=== PATIENT | female | born 1960 | race Asian ===

== ENCOUNTER 2019-03-20 08:21 | Outpatient (CLI) | payer MEDICAID ==
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
== END 2019-03-20 08:22 | disposition home or self-care (01) ==
LOC: DI 08:21
PROVIDERS: ATTEND Nurse Practitioner Gerontology
DX: M75.52 Bursitis of left shoulder (principal)

== ENCOUNTER 2019-09-10 07:57 | Outpatient (CLI) | payer MEDICAID ==
--- NOTE | 2019-09-10 08:28 | CT Report ---
Reason: TRAUMATIC SUBARACHNOID HEMORRHAGE, MIGRAINE Procedure Date: 09/10/2019 Accession Number: [id number] / [id number] Procedure: CT - HEAD WO CPT Code: Final Report FULL RESULT: EXAM: CT HEAD EXAM DATE: 09/10/2019 08:18 AM. CLINICAL HISTORY: TRAUMATIC SUBARACHNOID HEMORRHAGE, MIGRAINE. COMPARISON: None. TECHNIQUE: Multiaxial CT images were obtained from the foramen magnum to the vertex. Reformats: Sagittal and coronal. IV contrast: None. In accordance with CT protocol optimization, one or more of the following dose reduction techniques were utilized for this exam: automated exposure control, adjustment of mA and/or KV based on patient size, or use of iterative reconstructive technique. FINDINGS: Parenchyma: No intraparenchymal hemorrhage. No evidence of mass or midline shift. Abernathy-white differentiation is distinct. Extraaxial Spaces: Normal for age. No subdural or epidural collections identified. Ventricles: Normal in size and position. Sinuses and Orbits: Imaged paranasal sinuses, orbits, and mastoids show no significant abnormality. Bones: No evidence of fracture or calvarial defect. Other: There is a left frontal deep subcutaneous low dense lump, 0.5 x 3 cm, without fat stranding. IMPRESSION: 1. Negative for fracture or intracranial bleed. 2. A left frontal deep subcutaneous low dense lump, 0.5 x 3 cm, suggesting a lipoma. RADIA
== END 2019-09-10 07:58 | disposition home or self-care (01) ==
LOC: DI 07:57
PROVIDERS: ATTEND Physician Assistant Medical
DX: S06.6X0A Traumatic subarachnoid hemorrhage without loss of consciousness, initial encounter (principal); G43.909 Migraine, unspecified, not intractable, without status migrainosus; R93.89 Abnormal findings on diagnostic imaging of other specified body structures
CPT/HCPCS: 70450

== ENCOUNTER → 2020-06-16 | Outpatient (CLI) | payer MEDICARE, MEDICAID ==
--- NOTE | 2020-06-16 11:12 | XRAY Report ---
PROCEDURE: Cervical Spine 2 View INDICATIONS: LEFT ARM PAIN, RADICULOPATHY TECHNIQUE: 3 view(s) of the cervical spine were acquired. COMPARISON: None. FINDINGS: Bones: No fractures or dislocations to the T1 level. The lateral masses of C1 appear intact on the odontoid view. No suspicious bony lesions. Mild to moderate degenerative disc disease is present at C5-6 and C6-7 without subluxation or trauma. Soft tissues: No prevertebral soft tissue swelling. IMPRESSION: Mild to moderate middle and lower third cervical degenerative disc disease without sublu xation. Reviewed by: Raul Dumas MD on 06/16/2020 11:10 AM PDT Approved by: Raul Dumas MD on 06/16/2020 11:10 AM PDT Station ID: [id number]
== END ==
LOC: DI.WCP 10:31
PROVIDERS: ATTEND Orthopaedic Surgery
DX: M50.322 Other cervical disc degeneration at C5-C6 level (principal)
CPT/HCPCS: 72040

== ENCOUNTER 2020-06-26 04:58 | Outpatient (CLI) | payer MEDICARE, MEDICAID | END 2020-06-26 04:59 | disposition critical access hospital (66) | LOC: EMS 04:58 | PROVIDERS: ATTEND Surgery | DX: R10.9 Unspecified abdominal pain (principal); R11.2 Nausea with vomiting, unspecified | CPT/HCPCS: A0425; A0429 ==

== ENCOUNTER 2020-06-26 05:11 | Inpatient (IN) | payer MEDICARE, MEDICAID ==
--- NOTE | 2020-06-26 05:12 | ED Physician Documentation ---
PD HPI ABD PAIN - Stated complaint Stated Complaint: N/ V - History obtained from History obtained from: Patient, EMS - History of Present Illness Timing - onset: Enter time (00:30), Today Timing - duration: Hours Timing - details: Abrupt onset, Waxing and waning Pain level now: 8 Quality: Pain Location: Epigastric, Periumbilical Improved by: Other (nothing) Worsened by: Other (no exacerbating factors) Associated symptoms: Nausea, Vomiting. No: Fever, Diarrhea, Constipation, Chest pain Similar symptoms before: Diagnosis (feels similar to episode 2 months ago for which she was seen at ) - Additional information Additional information: BIBA for waxing and waning abdominal pain, predominantly epigastric, with nausea and vomiting since approximately 12:30 AM. She feels this is similar to an episode for which she was T+R from 2 months ago Review of Systems Constitutional: denies: Fever, Chills, Sweats Cardiac: reports: Reviewed and negative GI: reports: Abdominal Pain, Nausea, Vomiting. denies: Abdominal Swelling, Constipation, Diarrhea : denies: Dysuria, Frequency Musculoskeletal: reports: Reviewed and negative Neurologic: denies: Headache PD PAST MEDICAL HISTORY - Past Medical History Past Medical History: Yes GI: GERD, Other (severe gastritis/duodenitis (per records from )) - Past Surgical History Past Surgical History: Yes General: Cholecystectomy - Present Medications Home Medications: Ambulatory Orders Medication Instructions Recorded Confirmed Omeprazole 40 mg PO DAILY 06/26/20 06/26/20 - Allergies Allergies/Adverse Reactions: Allergies Allergy/AdvReac Type Severity Reaction Status Date / Time Penicillins Allergy Unknown Verified 06/26/20 05:21 - Living Situation Living Arrangement: reports: At home PD ED PE NORMAL - Vitals Vital signs reviewed: Yes - General General: Alert and oriented X 3, Well developed/nourished, Other (appears to be in painful distress, guarding abdomen, curled up on stretcher and lying on side moaning) - HEENT HEENT: Moist mucous membranes - Neck Neck: Supple, no meningeal sign - Cardiac Cardiac: RRR, No murmur - Respiratory Respiratory: No respiratory distress, Clear bilaterally - Abdomen Abdomen: Soft, Non distended - Back Back: No CVA TTP - Derm Derm: Normal color, Warm and dry - Extremities Extremities: No edema PD ED PE EXPANDED - Abdomen Abdomen: Tender to palpation (RUQ and epigastric TTP) Results - Vitals Vitals: Vital Signs - 24 hr 06/26/20 06/26/20 06/26/20 05:11 05:46 05:54 Temperature 36.1 C L Heart Rate 65 60 66 Respiratory 18 16 12 Rate Blood Pressure 139/89 H 96/62 107/80 O2 Saturation 100 97 06/26/20 06/26/20 06:28 08:08 Temperature 36.0 C L 37.1 C Heart Rate 66 62 Respiratory 20 19 Rate Blood Pressure 106/60 91/58 L O2 Saturation 97 94 Oxygen O2 Source Room air - Labs Labs: Laboratory Tests 06/26/20 06/26/20 06/26/20 05:30 05:30 08:15 WBC 15.7 H RBC 5.02 Hgb 15.6 Hct 47.3 H MCV 94.2 MCH 31.1 H MCHC 33.0 RDW 13.5 Plt Count 309 MPV 9.5 Neut # (Auto) 11.9 H Lymph # (Auto) 2.4 Tate # (Auto) 0.8 Eos # (Auto) 0.4 Baso # (Auto) 0.1 Absolute Nucleated RBC 0.00 Nucleated RBC % 0.0 Sodium 138 Potassium 4.1 Chloride 104 Carbon Dioxide 22 Anion Gap 12.0 BUN 17 Creatinine 0.8 Estimated GFR (MDRD) 74 L Glucose 115 H Calcium 9.6 Total Bilirubin 0.5 AST 24 ALT 22 Alkaline Phosphatase 84 Total Protein 7.6 Albumin 4.3 Globulin 3.3 Albumin/Globulin Ratio 1.3 Lipase 34 Urine Color YELLOW Urine Clarity CLEAR Urine pH 5.5 Ur Specific [place] <=1.005 Urine Protein NEGATIVE Urine Glucose (UA) NEGATIVE Urine Ketones NEGATIVE Urine Occult Blood NEGATIVE Urine Nitrite NEGATIVE Urine Bilirubin NEGATIVE Urine Urobilinogen 0.2 (NORMAL) Ur Leukocyte Esterase NEGATIVE Ur Microscopic Review NOT INDICATED Urine Culture Comments NOT INDICATED - Rads (name of study) CT A/P Radiology: Prelim report reviewed, See rad report PD MEDICAL DECISION MAKING - ED course Complexity details: reviewed results, re-evaluated patient, considered differential, d/w patient Departure - Departure Disposition: [facility] DC/Xfer Clinical Impression: Small bowel obstruction, Ileitis Condition: Good Discharge Date/Time: 06/26/20 09:36
[2020-06-26] MEDS ORDERED: MORPHINE 2 MG/ML CARPUJECT IVP STA (05:16)
[2020-06-26] MEDS ORDERED: SODIUM CHLORIDE 0.9% 1,000 ML IV STA (05:16)
[2020-06-26] MEDS ORDERED: ONDANSETRON 4 MG/2 ML VIAL IVP STA (05:16)
[2020-06-26 05:42] LABS: BASOPHILS # (AUTO) 0.1 10^3/uL (0.0-0.1); BASOPHILS % (AUTO) 0.6 %; EOSINOPHILS # (AUTO) 0.4 10^3/uL (0.0-0.7); EOSINOPHILS % (AUTO) 2.4 %; HGB - HEMOGLOBIN 15.6 g/dL (12.0-16.0); LYMPHOCYTES # (AUTO) 2.4 10^3/uL (1.5-3.5); LYMPHOCYTES % (AUTO) 15.3 %; MEAN CORPUSCULAR HEMOGLOBIN 31.1 pg (27.0-31.0); MEAN CORPUSCULAR VOLUME 94.2 fL (81.0-99.0); MEAN PLATELET VOLUME 9.5 fL (7.9-10.8); MONOCYTES # (AUTO) 0.8 10^3/uL (0.0-1.0); MONOCYTES % (AUTO) 5.3 %; NEUTROPHILS # (AUTO) 11.9 10^3/uL (1.5-6.6); NEUTROPHILS % (AUTO) 75.8 %; PLT - PLATELET COUNT 309 10^3/uL (130-450); RED BLOOD COUNT 5.02 10^6/uL (4.20-5.40); RED CELL DISTRIBUTION WIDTH 13.5 % (12.0-15.0); WHITE BLOOD COUNT 15.7 x10^3/uL (4.8-10.8)
[2020-06-26 06:00] LABS: ALBUMIN 4.3 g/dL (3.2-5.5); ALBUMIN/GLOBULIN RATIO 1.3 (1.0-2.2); BILIRUBIN,TOTAL 0.5 mg/dL (0.2-1.0); CALCIUM 9.6 mg/dL (8.5-10.3); CREATININE 0.8 mg/dL (0.4-1.0); TOTAL PROTEIN 7.6 g/dL (6.7-8.2)
[2020-06-26] MEDS ORDERED: IOVERSOL 320 100 ML VIAL IVP ONE ×2 (07:02→10:13)
[2020-06-26] MEDS ORDERED: PANTOPRAZOLE 40 MG VIAL IVP STA (07:08)
[2020-06-26 08:35] LABS: BILIRUBIN,URINE NEGATIVE (NEGATIVE); GLUCOSE, URINE (UA) NEGATIVE (NEGATIVE); KETONES,URINE (UA) NEGATIVE (NEGATIVE); LEUKOCYTE ESTERASE, URINE NEGATIVE (NEGATIVE); NITRITE,URINE NEGATIVE (NEGATIVE); OCCULT BLOOD,URINE NEGATIVE (NEGATIVE); PH,URINE 5.5 PH (5.0-7.5); PROTEIN,URINE NEGATIVE (NEGATIVE); UROBILINOGEN,URINE 0.2 (NORMAL) E.U./dL (NORMAL)
[2020-06-26 08:51] LABS: CLARITY,URINE CLEAR (CLEAR)
[2020-06-26] MEDS ORDERED: ONDANSETRON 4 MG/2 ML VIAL IVP PRN (09:33)
--- NOTE | 2020-06-26 09:59 | CT Report ---
PROCEDURE: Abdomen/Pelvis W INDICATIONS: abd. pain CONTRAST: IV CONTRAST: Optiray 320 ml: 100 PO CONTRAST: *NO PO CONTRAST TECHNIQUE: After the administration of contrast, 5 mm thick sections acquired from the diaphragms to the sym physis. 5 mm thick coronal and sagittal reformats were acquired. For radiation dose reduction, the following was used: automated exposure control, adjustment of mA and/or kV according to patient size . COMPARISON: None. FINDINGS: Image quality: Excellent. ABDOMEN: Lung bases: Lung bases are clear. Heart size is normal. Solid organs: Liver and spleen are normal in size and enhancement. Gallbladder has been previously resected Biliary system is non dilated. Pancreas enhances normally. No adrenal nodules. Kidneys d emonstrate normal size and enhancement, without hydronephrosis. Peritoneum and bowel: Colonic bowel loops demonstrate normal wall thickness and caliber. Small bowel loops within the abdomen and pelvis show mild wall thickening and mucosal enhancement in several seg ments, and also fluid prominence, with maximal transverse dimension of the small bowel loops up to 2. 5 cm. At the terminal ileum area there is mild elevated mucosal contrast enhancement at the junction between the large and small bowel. In this area a normal appendix appears present. No free fluid or a ir. Nodes and vessels: No retroperitoneal or mesenteric adenopathy by size criteria. Aorta and inferior vena cava are normal in size. Miscellaneous: No ventral hernias. PELVIS: Genitourinary: Bladder wall thickness is normal. Miscellaneous: No inguinal hernias or adenopathy. Mild fluid distention within the small bowel as d iscussed, no evidence of appendicitis. Segmental areas of small bowel mild mural thickening are prese nt with increased mucosal enhancement. The overall appearance raises concern for an inflammatory proc ess ongoing. Bones: No suspicious bony lesions. No vertebral body compression fractures. IMPRESSION: Mild small bowel fluid prominence, segmental areas of mild elevated small bowel mucosal enhancement above what is generally seen. There is no evidence of abscess formation, appendicitis, or obstruction and overall the appearance does raise concern for an inflammatory etiology such as infec tious enteritis or even Crohn's disease. Reviewed by: Raul Dumas MD on 06/26/2020 9:58 AM PDT Approved by: Raul Dumas MD on 06/26/2020 9:58 AM PDT Station ID: [id number]
--- NOTE | 2020-06-26 13:41 | HISTORY & PHYSICAL EXAMINATION ---
Chief Complaint - Chief Complaint Chief Complaint: Abrupt onset nausea, vomiting, abdominal pain History of Present Illness - Admitted From Admitted From:: Home/ER - History Obtained From Records Reviewed: [facility] records provided History obtained from: Patient Exam Limitations: None - History of Present Illness HPI Comment/Other: 60-year-old white female who has a history of a cholecystectomy that comes to [facility] emergency room by ambulance because of abdominal pain that started at 12:30 in the morning. She has a previous history of this kind of abdominal pain on April 2020. At that time she was admitted to [facility] with 1 day of diffuse colicky upper abdominal pain and nausea without vomiting. CT scan in their emergency room had multiple dilated loops of small bowel in the lower abdomen and emanating from the terminal ileum. The terminal ileum demonstrated increased mural enhancement and surrounding inflammatory changes. There was fecal visitation within the small bowel and there was air-fluid levels. There is a secondary narrowing in the ileum. With that visit her white cell count was 8.9. She was treated with bowel rest, NG tube decompression, Gastrografin, and steroids. Colonoscopy and upper endoscopy were also done. Colonoscopy was normal but she had gastritis. She was discharged May 05. She now returns with abrupt onset of waxing and waning epigastric pain. Also radiates to the periumbilical area. Nothing makes it better. She is nauseated, vomiting. She denies any fever, diarrhea, change in bowel habits, or chest pain. She was afebrile. Heart rate normal. Blood pressure normal. Oxygen normal. This time her white cell count is elevated at 15.7. Electrolytes are normal. With this current episode of abdominal pain the CT of the abdomen shows colonic bowel loops with normal wall thickness and caliber. Small bowel loops within the abdomen and pelvis show mild wall thickening and mucosal enhancement in several segments. Fluid is prominent. At the terminal ileum there is mild elevated mucosal contrast-enhancement at the junction between the large and small bowel. She is now admitted again for recurrent small bowel obstruction. 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 They in the [facility] and she has no insight to how old they were or what they of. She has no sisters, 3 brothers. One brother of a nonspecific illness in the [facility]. 2 children. 1 son is healthy and lives in [place]. The other son of a nonspecific illness when he was very little living in the [facility]. Living arrangement: At home Living Situation: Alone Social History Notes: Current every day smoker.She started smoking approximately 1993. She is currently smoking 1 carton of cigarettes every 2 days. No history of alcohol abuse. She has been once. from her . But he is still the person that we would contact in case of emergency. His name is Jt Silva. I have been attempting to call the phone number she provided at [phone], but that line is no longer in service. She has no other number at this time. She has no history of recreational substance abuse. She states that she is on disability for the last year. But she cannot tell me why she is on disability. - POLST Patient has POLST: No POLST Status: Full Code Meds/Allgy - Allergies Allergies/Adverse Reactions: Allergies Allergy/AdvReac Type Severity Reaction Status Date / Time Penicillins Allergy Unknown Verified 06/26/20 05:21 Review of Systems - Constitutional Constitutional: reports: Fatigue, Poor appetite. denies: Fever, Chills, Malaise, Weakness - Eyes Eyes: denies: Pain, Irritation, Amaurosis, Blurred vision - Ears, Nose & Throat Ears, Nose & Throat: denies: Ear pain, Hearing loss, Vertigo, Nosebleeds, Nasal congestion, Postnasal drainage - Cardiovascular Cariovascular: denies: Irregular heart rate, Palpitations, Chest pain, Edema, Syncope, Exertional dyspnea, Decr. exercise tolerance - Respiratory Respiratory: denies: Cough, Sputum production, Wheezing, Snoring, Orthopnea, SOB at rest, SOB with exertion - Gastrointestinal Gastrointestinal: reports: Abdominal pain, Abdominal distention, Nausea, Vomiting. denies: Black stools, Bloody stools, Bile emesis - Genitourinary Genitourinary: denies: Dysuria, Frequency, Urgency, Hematuria - Musculoskeletal Musculoskeletal: denies: Back pain, Muscle aches, Stiffness - Integumentary Integumentary: denies: Rash, Pruritis, Lesions - Neurological Neurological: reports: Memory problems. denies: General weakness, Focal weakness, Headache, Seizures, Incoordination, Slurred speech - Psychiatric Psychiatric: reports: Depression, Anxiety. denies: Suicidal, Delusions, Hallucinations, Homicidal - Endocrine Endocrine: denies: Polyuria, Polydypsia, Polyphagia - Hematologic/Lymphatic Hematologic/Lymphatic: denies: Anemia Prior Level of Functionality: She is able to take care of herself. She is able to complete all of her activities of daily living. Lives alone. Drives a car. Pays her own bills. Exam - Vital Signs Reviewed Vital Signs: Yes Vital Signs: Vital Signs x48h Temp Pulse Pulse Resp BP BP Pulse Ox 06/26/20 13:00 37.0 C 56 L 18 104/56 L 96 06/26/20 10:20 36.8 C 64 16 113/62 97 06/26/20 08:08 37.1 C 62 19 91/58 L 94 06/26/20 06:28 36.0 C L 66 20 106/60 97 06/26/20 05:54 66 12 107/80 97 06/26/20 05:46 60 16 96/62 - Physical Exam General Appearance: positive: No acute distress, Alert, Other (4 foot 11 female who is 53 kg. She is awake, alert, but very apathetic and emotionally withdrawn. Reluctantly answers question and is slightly paranoid and suspicious of the questions being asked during history and physical.) Eyes Bilateral: positive: PERRL, EOMI ENT: positive: Pharynx nml Neck: positive: No JVD, Trachea midline. negative: Stiff neck Respiratory: positive: Chest non-tender. negative: Wheezes, Rales, Rhonchi Cardiovascular: positive: Regular rate & rhythm. negative: Systolic murmur, Diastolic murmur, Gallop/S4, Friction rub Peripheral Pulses: positive: 1+ Abdomen: positive: Other (Pain is generalized, abdomen is slightly distended. Worse in the epigastric area. Hypoactive bowel sounds. No rebound or guarding. No masses. Last flatus and bowel movement were this morning.) Back: negative: CVA tenderness (R), CVA tenderness (L) Skin: positive: Color nml, No rash, Warm, Dry Extremities: positive: Non-tender, Full ROM, Nml appearance Neurologic/Psychiatric: positive: Oriented x3, CN's nml (2-12), Motor nml. negative: Mood/affect nml Conclusion/Plan - Problem List (1) Small bowel obstruction, partial Conclusion/Plan: Recurrent. Present on admission. Previous work-up indicated a EGD with gastritis but no cause of the small bowel obstruction. She does not have tumor, or adhesions noted in the discharge summary. Nor does she have a hernia. Colonoscopy was negative Other than a tubular adenoma that was small. The pathology of the colon,,, and esophagus was negative for malignancy, or inflammatory bowel disease. The small bowel obstruction resolved with bowel rest, and a Gastrografin upper GI. Plan: Inpatient status No NG at this time since she is not actively vomiting but will place NG if she does IV fluids for hydration Pain and nausea medications General surgery consultation. Dr. Mendoza is in the OR, and message has been left with her. - Lab Results Lab results reviewed: Yes Fish Bones: 06/26/20 05:30 06/26/20 05:30 - Diagnostic Imaging Results Diagnostic Imaging Results: positive: Final report reviewed Core Measures - Anticipated LOS I expect patient to be DC'd or transferred within 96 hours.: Yes - DVT/VTE - Prophylaxis VTE/DVT Device ordered at admit?: Yes
[2020-06-26] MEDS ORDERED: HYDROmorphone 0.5 MG/0.5 ML SYRINGE IVP PRN (13:42)
[2020-06-26] MEDS ORDERED: PROCHLORPERAZINE 10 MG/2 ML VIAL IVP PRN (13:42)
[2020-06-26] MEDS ORDERED: SODIUM CHLORIDE FLUSH 0.9% 10 ML SYRINGE IVP PRN (13:42)
--- NOTE | 2020-06-26 14:15 | PHARMACY PROGRESS NOTE ---
- Best Possible Medication History Admit Date and Time: 06/26/20 0842 Processed by: Pharmacy Medication History completed: Yes Patient Interview: Pt interview ONLY source As the person ultimately responsible for medication therapy, providers are able to order a medication from an existing home medication list in [facility] via the "Reconcile Routine" prior to Confirmation of that medication by production support specialist. Such practice is discouraged except when the physician, in their clinical judgment, deems that a medical need exists for a medication without regard to previous use.
[2020-06-26] MEDS: LACTATED RINGERS 1,000 ML IV SCH (14:38)
[2020-06-26] MEDS: SODIUM CHLORIDE FLUSH 0.9% 10 ML SYRINGE IVP SCH (17:56)
--- NOTE | 2020-06-26 17:57 | CONSULTATION NOTE ---
Referring Provider Name of Referring Provider:: Dr. Rubin Consult Date: 06/26/20 Chief Complaint - Chief Complaint Chief Complaint: Abdominal pain History of Present Illness - Admitted From Admitted From:: ED - History Obtained From Records Reviewed: Other provider's notes and old records History obtained from: Provider and patient as well as records Exam Limitations: Some degree of language barrier. - History of Present Illness HPI Comment/Other: Moon is a 60 year old lady admitted today from the ED with complaint of abdominal pain with nausea, vomiting, and diarrhea. She is unsure if she had fever at home but reports she was sweating and feeling weak and this is what prompted her to call EMS. She reports she had a similar episode in April when she was seen at [facility] and was evaluated with upper and lower endoscopy, CT, and UGISBFT. She was noted to have a normal colonoscopy and gastritis seen on EGD. Symptoms resolved with UGISBFT and she was discharged after 1 day with PPI for gastritis. She was in her usual state of health until yesterday when she reports she began to feel sweaty and to have cramps. She had a normal bowel movement followed by a large diarrhea stool. At the same time, she became nauseated and vomited several times at home before deciding to call EMS. She did not note any blood in the stool or emesis. Moon denies any new foods or exposures. She denies any sick contacts. She has little information about her family's medical history. She reports she has had episodes similar to this multiple times in the past but it resolved without treatment until this past April. In our ED, the patient was noted to have leukocytosis and CT evidence of distal ileitis. She was admitted to the medicine service and I have been asked to consult. . 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 They in the [facility] and she has no insight to how old they were or what they of. She has no sisters, 3 brothers. One brother of a nonspecific illness in the [facility]. 2 children. 1 son is healthy and lives in [place]. The other son of a nonspecific illness when he was very little living in the [facility]. Living arrangement: At home Living Situation: Alone Social History Notes: Current every day smoker.She started smoking approximately 1993. She is currently smoking 1 carton of cigarettes every 2 days. No history of alcohol abuse. She has been once. from her . But he is still the person that we would contact in case of emergency. His name is Jt Silva. I have been attempting to call the phone number she provided at [phone], but that line is no longer in service. She has no other number at this time. She has no history of recreational substance abuse. She states that she is on disability for the last year. But she cannot tell me why she is on disability. - POLST Patient has POLST: No POLST Status: Full Code Meds/Allgy - Home Medications Home Medications: Ambulatory Orders Medication Instructions Recorded Confirmed Omeprazole 40 mg PO DAILY 06/26/20 06/26/20 - Allergies Allergies/Adverse Reactions: Allergies Allergy/AdvReac Type Severity Reaction Status Date / Time Penicillins Allergy Unknown Verified 06/26/20 05:21 Review of Systems - Constitutional Constitutional: reports: Fatigue, Chills, Malaise, Poor appetite, Night sweats - Eyes Eyes: denies: Pain - Ears, Nose & Throat Ears, Nose & Throat: reports: Vertigo. denies: Tinnitus, Sore throat, Hoarseness - Cardiovascular Cariovascular: reports: Lightheadedness. denies: Irregular heart rate, Palpitations, Chest pain, Edema - Respiratory Respiratory: reports: SOB with exertion. denies: Cough, Wheezing, Snoring, Orthopnea, SOB at rest - Gastrointestinal Gastrointestinal: reports: Abdominal pain, Diarrhea, Nausea, Vomiting, Bile emesis, Reflux/heartburn, Poor appetite. denies: Rectal bleeding, Black stools, Bloody stools, Coffee grounds emesis, Bloating - Genitourinary Genitourinary: denies: Dysuria, Frequency, Urgency - Integumentary Integumentary: denies: Rash - Hematologic/Lymphatic Hematologic/Lymphatic: reports: Anemia, Bruising Exam - Vital Signs Reviewed Vital Signs: Yes Vital Signs: Vital Signs x48h Temp Pulse Pulse Resp BP Pulse Ox 06/26/20 16:55 36.6 C 57 L 16 95 06/26/20 15:52 36.6 C 57 L 18 112/63 99 06/26/20 13:00 37.0 C 56 L 18 104/56 L 96 06/26/20 10:20 36.8 C 64 16 113/62 97 - Physical Exam General Appearance: positive: No acute distress, Anxious Eyes Bilateral: positive: Normal inspection, PERRL, EOMI ENT: positive: ENT inspection nml, No signs of dehydration Neck: positive: Nml inspection, No JVD Respiratory: positive: Chest non-tender, No respiratory distress, Breath sounds nml Cardiovascular: positive: Regular rate & rhythm Peripheral Pulses: positive: 0 Abdomen: positive: Nml bowel sounds, No distention, Other (Tender to palpation in the epigastrum and suprapubic region. Minimal voluntary guarding.) Skin: positive: Color nml, No rash Extremities: positive: Non-tender Neurologic/Psychiatric: positive: Oriented x3 Conclusion and Plan - Lab Results Laboratory Results 06/26/20 08:15: Urine Color YELLOW, Urine Clarity CLEAR, Urine pH 5.5, Ur Specific [place] <=1.005, Urine Protein NEGATIVE, Urine Glucose (UA) NEGATIVE, Urine Ketones NEGATIVE, Urine Occult Blood NEGATIVE, Urine Nitrite NEGATIVE, Urine Bilirubin NEGATIVE, Urine Urobilinogen 0.2 (NORMAL), Ur Leukocyte Esterase NEGATIVE, Ur Microscopic Review NOT INDICATED, Urine Culture Comments NOT INDICATED 06/26/20 05:30: Sodium 138, Potassium 4.1, Chloride 104, Carbon Dioxide 22, Anion Gap 12.0, BUN 17, Creatinine 0.8, Estimated GFR (MDRD) 74 L, Glucose 115 H, Calcium 9.6, Total Bilirubin 0.5, AST 24, ALT 22, Alkaline Phosphatase 84, Total Protein 7.6, Albumin 4.3, Globulin 3.3, Albumin/Globulin Ratio 1.3, Lipase 34 06/26/20 05:30: WBC 15.7 H, RBC 5.02, Hgb 15.6, Hct 47.3 H, MCV 94.2, MCH 31.1 H, MCHC 33.0, RDW 13.5, Plt Count 309, MPV 9.5, Neut # (Auto) 11.9 H, Lymph # (Auto) 2.4, [place] # (Auto) 0.8, Eos # (Auto) 0.4, Baso # (Auto) 0.1, Absolute Nucleated RBC 0.00, Nucleated RBC % 0.0 - Diagnosis Diagnosis: Ileitis with functional obstruction and abdominal pain. - Plan Plan: 1. Recommend stool studies and these have been requested 2. Broad spectrum antibiotics for treatment of possible infectious inflammation - Cipro and flagyl 3. Referral for pill cam endoscopy when this episode has resolved. 4. Thank you for including me in the care of this nice lady.
[2020-06-26] MEDS: CIPROFLOXACIN 400 MG/200 ML 400 MG/200 ML BAG IV SCH (19:54)
[2020-06-26] MEDS: metroNIDAZOLE 500 MG/100 ML 500 MG/100 ML BAG IV SCH (21:25)
[2020-06-27] MEDS: SODIUM CHLORIDE FLUSH 0.9% 10 ML SYRINGE IVP SCH ×3 (00:09→17:45)
[2020-06-27] MEDS: LACTATED RINGERS 1,000 ML IV SCH (02:31)
[2020-06-27 05:53] LABS: BASOPHILS # (AUTO) 0.1 10^3/uL (0.0-0.1); BASOPHILS % (AUTO) 0.8 %; EOSINOPHILS # (AUTO) 0.4 10^3/uL (0.0-0.7); EOSINOPHILS % (AUTO) 6.3 %; HGB - HEMOGLOBIN 12.3 g/dL (12.0-16.0); LYMPHOCYTES # (AUTO) 2.4 10^3/uL (1.5-3.5); LYMPHOCYTES % (AUTO) 38.3 %; MEAN CORPUSCULAR HEMOGLOBIN 30.1 pg (27.0-31.0); MEAN CORPUSCULAR HGB CONC 31.2 g/dL (32.0-36.0); MEAN CORPUSCULAR VOLUME 96.3 fL (81.0-99.0); MEAN PLATELET VOLUME 9.6 fL (7.9-10.8); MONOCYTES # (AUTO) 0.5 10^3/uL (0.0-1.0); MONOCYTES % (AUTO) 8.3 %; NEUTROPHILS # (AUTO) 2.8 10^3/uL (1.5-6.6); NEUTROPHILS % (AUTO) 46.1 %; PLT - PLATELET COUNT 236 10^3/uL (130-450); RED BLOOD COUNT 4.09 10^6/uL (4.20-5.40); RED CELL DISTRIBUTION WIDTH 13.4 % (12.0-15.0); WHITE BLOOD COUNT 6.2 x10^3/uL (4.8-10.8)
[2020-06-27] MEDS: metroNIDAZOLE 500 MG/100 ML 500 MG/100 ML BAG IV SCH ×2 (05:58→13:38)
[2020-06-27 06:03] LABS: CALCIUM 8.5 mg/dL (8.5-10.3); CREATININE 0.6 mg/dL (0.4-1.0); MAGNESIUM 2.2 mg/dL (1.7-2.8)
[2020-06-27] MEDS ORDERED: PANTOPRAZOLE 40 MG VIAL IVP SCH (07:00)
[2020-06-27] MEDS: CIPROFLOXACIN 400 MG/200 ML 400 MG/200 ML BAG IV SCH (08:02)
[2020-06-27 16:24] VITALS: BP 148/80
--- NOTE | 2020-06-27 18:03 | Discharge Plan ---
Discharge Plan Problem Reviewed?: Yes Disposition: Home, Self Care Condition: Good Prescriptions: Ciprofloxacin [Cipro] 250 mg PO Q12H #12 tablet metroNIDAZOLE [Flagyl] 500 mg PO Q8H #36 tablet Promethazine [Phenergan] 25 - 50 mg PO Q6H PRN #20 tab PRN Reason: Nausea / Vomiting Diet: Soft (low fiber, easy to digest for now) Activity Restrictions: No Restrictions Shower Restrictions: No Driving Restrictions: No Health Concerns: You presented to the emergency room the recurrence of abdominal pain. You had been hospitalized at [facility] in April 2020 with severe abdominal pain, nausea, vomiting and diarrhea. You are found to have a small bowel obstruction then. At that time CAT scan of your abdomen was negative other than the obstruction. You had an upper and lower endoscopy. You had gastritis in your stomach. But no true cause of the bowel obstruction was found. You got better with just waiting, NG suction, and not eating for a few days. You then came back to us with sudden onset of abdominal pain. You were sweaty with this. Very crampy. CAT scan again showed you to have incomplete bowel obstruction. We think there is a section of your bowel that is inflamed causing this problem. You responded well to IV antibiotics, nausea medicine, pain medicine. On the day of discharge you are able to tolerate an increase in your diet from clear liquids to a regular diet without pain. Plan of Treatment: 1. You will need to complete your antibiotics as requested by the surgeon. You will take ciprofloxacin and Flagyl for the next 6 days. 2. Please take a probiotic that is [id number], twice a day while you are on antibiotics to help you with upset stomach and diarrhea 3. The general surgeon who saw you in consult, Dr. Mendoza, strongly feels that you need a capsule endoscopy. It is a camera that is the size of a large pill. You swallowed the camera and goes through your bowel taking pictures to see the area of bowel that we cannot see with her upper and lower endoscopy. 4. Please see your primary care provider, which is [facility], and have them make a referral for the capsule endoscopy. Even though your doctor is no longer there, there is someone in that office that we will still see you. Call that office and make an appointment so that you can be referred for the capsule endoscopy. Care Goals: To not have any recurrence of abdominal pain, or to need surgery for this pain Assessment: Patient understands care goals, states that she may have difficulty getting into her PCP but she will try. No Smoking: If you smoke, Please STOP! Call for help. Follow-up with: Jodi Tanner, DO [Provider Admit Priv/Credential] -
--- NOTE | 2020-06-27 18:13 | DISCHARGE SUMMARY ---
"Discharge Summary Admit Date: 06/26/20 Discharge Date: 06/27/20 Discharging Provider: Cathy Rubin MD Primary Care Provider: Jazmine Tanner MD Code Status: Attempt Resuscitation Condition at Discharge: Good Discharge Disposition: 01 Home, Self Care - HPI History of Present Illness: 60-year-old white female who has a history of a cholecystectomy that comes to the emergency room by ambulance because of abdominal pain that started at 12:30 in the morning. She has a previous history of this kind of abdominal pain on April 2020. At that time she was admitted to [facility] with 1 day of diffuse colicky upper abdominal pain and nausea without vomiting. CT scan in their emergency room had multiple dilated loops of small bowel in the lower abdomen and emanating from the terminal ileum. The terminal ileum demonstrated increased mural enhancement and surrounding inflammatory changes. There was fecal visitation within the small bowel and there was air-fluid levels. There is a secondary narrowing in the ileum. With that visit her white cell count was 8.9. She was treated with bowel rest, NG tube decompression, Gastrografin, and steroids. Colonoscopy and upper endoscopy were also done. Colonoscopy was normal but she had gastritis. She was discharged May 05. She now returns with abrupt onset of waxing and waning epigastric pain. Also radiates to the periumbilical area. Nothing makes it better. She is nauseated, vomiting. She denies any fever, diarrhea, change in bowel habits, or chest pain. She was afebrile. Heart rate normal. Blood pressure normal. Oxygen normal. This time her white cell count is elevated at 15.7. Electrolytes are normal. With this current episode of abdominal pain the CT of the abdomen shows colonic bowel loops with normal wall thickness and caliber. Small bowel loops within the abdomen and pelvis show mild wall thickening and mucosal enhancement in several segments. Fluid is prominent. At the terminal ileum there is mild elevated mucosal contrast-enhancement at the junction between the large and small bowel. She is now admitted again for recurrent small bowel obstruction. 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 Rebeca Mendoza Procedures: Abdomen/pelvis CT with small bowel loops within the abdomen and pelvis having mild wall thickening and mucosal enhancement in several segments. Fluid is prominent. At the terminal ileum there is a mild elevated mucosal contrast- enhancement at the junction between the large and small bowel. No retroperitoneal or mesenteric adenopathy. Appearance does raise concern for inflammatory etiology such as infectious enteritis or Crohn's disease. - HOSPITAL COURSE Hospital Course: The patient was initially placed on n.p.o. status. And aggressively hydrated. Even with those 2 measures she no longer had diarrhea or emesis. She was seen by general surgery who feels that she has a functional obstruction due to a small bowel ileitis. She is already had an upper and lower endoscopy with pathology negative. The neck step would be a capsule endoscopy that needs to be scheduled in the outpatient setting. The patient was placed on empiric antibiotic therapy for colitis and she responded quite well to that. She was able to go from clear liquid diet to a regular diet without any recurrence of abdominal pain, diarrhea or emesis. The surgeon did want stool sent specimen submitted for cultures but the patient had no further stool during her stay here. Patient was asking to be discharged home. She recovered much more quickly than we thought considering she had been at [facility] for several days with her episode. Nevertheless she was discharged in stable condition. Discharge examination had a temperature of 37. Pulse 58. Blood pressure 148/80. Respirations 20 and 96% on room air. She is a 4 foot 11 [place] female who weighs 53 kg. She is a very suspicious person and sometimes seems slightly paranoid but her ex- states that that is who she really is. Neck is supple. Lungs are clear to auscultation and percussion. PMI is normally placed with a regular rate and rhythm. She had a vague ache in the mid abdomen that was a 1 out of a 10 when I palpated her. But was much improved from yesterday. Normal bowel sounds. No rebound or guarding. Extremities were without edema and she was ambulating in the hallway without any ataxia or difficulty. She is being discharged at less than 2 midnights because of an anticipated quick recovery from her functional bowel obstruction. - ALLERGIES Allergies/Adverse Reactions: Allergies Allergy/AdvReac Type Severity Reaction Status Date / Time Penicillins Allergy Unknown Verified 06/26/20 05:21 - MEDICATIONS Home Medications: Ambulatory Orders Medication Instructions Recorded Confirmed Omeprazole 40 mg PO DAILY 06/26/20 06/26/20 Ciprofloxacin [Cipro] 250 mg PO Q12H #12 tablet 06/27/20 Promethazine [Phenergan] 25 - 50 mg PO Q6H PRN #20 tab 06/27/20 metroNIDAZOLE [Flagyl] 500 mg PO Q8H #36 tablet 06/27/20 - LABS Result Diagrams: 06/27/20 05:12 06/27/20 05:12"
[2020-06-27 18:59] LABS: H. PYLORIS ANTIGEN STL NEGATIVE (Negative)
== END 2020-06-27 19:35 | disposition home or self-care (01) | DRG 390 ==
LOC: EDUNIT# → ED 05:11 → MS2 08:42
PROVIDERS: ADMIT Internal Medicine; ATTEND Specialist
DX: K56.609 Unspecified intestinal obstruction, unspecified as to partial versus complete obstruction (principal); K56.600 Partial intestinal obstruction, unspecified as to cause; K52.9 Noninfective gastroenteritis and colitis, unspecified; Z90.49 Acquired absence of other specified parts of digestive tract; K21.9 Gastro-esophageal reflux disease without esophagitis; F17.210 Nicotine dependence, cigarettes, uncomplicated
CPT/HCPCS: 36415; 74177; 80048; 80053; 81003; 81599; 83690; 83735; 85025; 87015; 87177; 87209; 87272; 87329; 87338; 87798; 96361; 96374; 96375; 99284; 99285; J7120; Q9967; 81001; 87045; 87046; 87086

== ENCOUNTER 2022-09-17 07:35 | Outpatient (CLI) | payer MEDICARE, MEDICAID | END 2022-09-17 07:36 | disposition home or self-care (01) | LOC: DI 07:35 | PROVIDERS: ATTEND Family Medicine | DX: I71.20 Thoracic aortic aneurysm, without rupture, unspecified (principal) | CPT/HCPCS: 93306 ==

== ENCOUNTER 2023-01-30 10:40 | Outpatient (CLI) | payer MEDICARE, MEDICAID | END 2023-01-30 10:41 | disposition home or self-care (01) | LOC: LAB.N 10:40 | PROVIDERS: ATTEND Nurse Practitioner Family | DX: Z00.00 Encounter for general adult medical examination without abnormal findings (principal) | CPT/HCPCS: 36415; 80053; 80061; 83036; 83721; 84443; 85025 ==

== ENCOUNTER 2023-02-18 07:53 | Outpatient (CLI) | payer MEDICARE, MEDICAID ==
--- NOTE | 2023-02-18 13:21 | DEXA Report ---
PROCEDURE: Dexa Spine and/or Hip INDICATIONS: POST MENOPAUSAL PRIORS: NONE POST MENOPAUSAL TECHNIQUE: Dual energy x-ray absorptiometry (DXA) was performed on a Mirimus System. Regions measur ed are the AP Spine, femoral neck, and if needed forearm. COMPARISON: None FINDINGS: Lumbar Spine: Bone Mineral Density 0.932 g/cm/cm,T score -2.1. Moderate to severe osteopenia Left Femoral Neck: Bone Mineral Density 0.747 g/cm/cm, T score -2.1. Moderate to severe osteopenia Left Hip: Bone Mineral Density 0.949 g/cm/cm,T score -0.5. Normal (T score greater or equal to -1.0: NORMAL) (T score from -1.1 to -2.4: OSTEOPENIA) (T score less than or equal to -2.5 to: OSTEOPOROSIS) Impression: By WHO criteria, this patient has low bone density (osteopenia). of the lumbar spine. of the hip. Patients with diagnosis of osteoporosis or osteopenia should have regular bone mineral density assess ment. For those eligible for Medicare, routine testing is allowed once every 2 years. Testing frequ ency can be increased for patients who have rapidly progressing disease or for those who are receivin g medical therapy to restore bone mass. Reviewed by: Meli Garrison MD on 02/18/2023 1:20 PM PDT Approved by: Meli Garrison MD on 02/18/2023 1:20 PM PDT Station ID: [id number]
== END 2023-02-18 07:54 | disposition home or self-care (01) ==
LOC: DI 07:53
PROVIDERS: ATTEND Nurse Practitioner Family
DX: M85.89 Other specified disorders of bone density and structure, multiple sites (principal); Z78.0 Asymptomatic menopausal state

== ENCOUNTER 2024-04-26 10:16 | Outpatient (CLI) | payer MEDICARE, MEDICAID ==
[2024-04-26 11:52] LABS: BASOPHILS # (AUTO) 0.1 10^3/uL (0.0-0.1); BASOPHILS % (AUTO) 1.3 %; EOSINOPHILS # (AUTO) 0.4 10^3/uL (0.0-0.7); EOSINOPHILS % (AUTO) 5.1 %; LYMPHOCYTES # (AUTO) 2.4 10^3/uL (1.5-3.5); LYMPHOCYTES % (AUTO) 31.3 %; MEAN CORPUSCULAR HEMOGLOBIN 30.6 pg (27.0-31.0); MEAN CORPUSCULAR HGB CONC 31.1 g/dL (32.0-36.0); MEAN CORPUSCULAR VOLUME 98.3 fL (81.0-99.0); MONOCYTES # (AUTO) 0.5 10^3/uL (0.0-1.0); MONOCYTES % (AUTO) 6.5 %; NEUTROPHILS # (AUTO) 4.3 10^3/uL (1.5-6.6); NEUTROPHILS % (AUTO) 55.5 %; PLT - PLATELET COUNT 274 10^3/uL (130-450); RED BLOOD COUNT 4.58 10^6/uL (4.20-5.40); RED CELL DISTRIBUTION WIDTH 13.9 % (12.0-15.0); WHITE BLOOD COUNT 7.7 x10^3/uL (4.8-10.8)
[2024-04-26 12:25] LABS: ALBUMIN 4.2 g/dL (3.2-5.5); ALBUMIN/GLOBULIN RATIO 1.4 (1.0-2.2); ALKALINE PHOSPHATASE 64 IU/L (42-121); ALT ALANINE AMINOTRANSFERASE 15 IU/L (10-60); AST ASPARTATE AMINOTRANSFERASE 17 IU/L (10-42); BILIRUBIN,TOTAL 0.3 mg/dL (0.2-1.0); BUN - BLOOD UREA NITROGEN 18 mg/dL (6-20); CALCIUM 9.5 mg/dL (8.5-10.3); CARBON DIOXIDE - CO2 28 mmol/L (21-32); CHLORIDE 103 mmol/L (101-111); CHOLESTEROL 184 mg/dL; CREATININE 0.6 mg/dL (0.6-1.3); GFR - MDRD 102 (>89); GLUCOSE 113 mg/dL (74-104); HDL CHOLESTEROL 37 mg/dL; LDL CHOLESTEROL,CALCULATED 127 mg/dL; LDL/HDL RATIO 3.4 (<4.4); POTASSIUM 4.2 mmol/L (3.5-4.5); SODIUM 135 mmol/L (135-145); TOTAL PROTEIN 7.1 g/dL (6.4-8.9); TRIGLYCERIDES 99 mg/dL; VLDL CHOLESTEROL 20 mg/dL
[2024-04-26 12:32] LABS: THYROID STIMULATING HORMONE 1.92 uIU/mL (0.34-5.60)
== END 2024-04-26 10:17 | disposition home or self-care (01) ==
LOC: LAB.N 10:16
PROVIDERS: ATTEND Nurse Practitioner Family
DX: R73.03 Prediabetes (principal); R07.9 Chest pain, unspecified
CPT/HCPCS: 36415; 80053; 80061; 83721; 84443; 85025

== ENCOUNTER 2024-06-23 07:00 | Outpatient (CLI) | payer MEDICARE, MEDICAID ==
[2024-06-23 18:09] LABS: BILIRUBIN,URINE NEGATIVE (NEGATIVE); GLUCOSE, URINE (UA) NEGATIVE (NEGATIVE); KETONES,URINE (UA) NEGATIVE (NEGATIVE); LEUKOCYTE ESTERASE, URINE NEGATIVE (NEGATIVE); NITRITE,URINE NEGATIVE (NEGATIVE); OCCULT BLOOD,URINE NEGATIVE (NEGATIVE); PROTEIN,URINE NEGATIVE (NEGATIVE); UROBILINOGEN,URINE 0.2 (NORMAL) E.U./dL (NORMAL)
[2024-06-23 18:12] LABS: CLARITY,URINE CLEAR (CLEAR)
[2024-06-23 18:21] LABS: BACTERIA,URINE None Seen /HPF (None Seen); RBC,URINE 0-5 /HPF (0-5); SQUAMOUS EPITHELIAL CELL,UR FEW Squamous (<= Few); WBC,URINE 0-3 /HPF (0-5)
== END 2024-06-23 23:59 | disposition home or self-care (01) ==
LOC: LAB.S 07:00
PROVIDERS: ATTEND Nurse Practitioner Family
DX: R31.9 Hematuria, unspecified (principal)
CPT/HCPCS: 81001; 87086

== ENCOUNTER 2024-06-25 08:00 | Outpatient (CLI) | payer MEDICARE, MEDICAID ==
[2024-06-25 19:28] LABS: FECAL OCCULT BLOOD (FIT) POSITIVE (NEGATIVE)
== END 2024-06-25 23:59 | disposition home or self-care (01) ==
LOC: LAB.N 08:00
PROVIDERS: ATTEND Nurse Practitioner Family
DX: K92.1 Melena (principal); R10.84 Generalized abdominal pain
CPT/HCPCS: 82274

== ENCOUNTER 2024-07-05 07:23 | Outpatient (CLI) | payer MEDICARE, MEDICAID ==
[2024-07-05 07:51] LABS: CREATININE 0.7 mg/dL (0.6-1.3)
--- NOTE | 2024-07-05 12:21 | CT Report ---
PROCEDURE: Abdomen/Pelvis W INDICATIONS: HIST OF SBO, ABD PAIN, BLOOD IN STOOL, HEMATURIA CONTRAST: Omni 300 100ml TECHNIQUE: After the administration of intravenous contrast, a CT scan of the abdomen and pelvis was performed. Images were recorded and evaluated at appropriate window settings. Reformats: coronal and sagittal. F or radiation dose reduction, the following was used: automated exposure control, adjustment of mA and /or kV according to patient size. COMPARISON: 06/26/2020. FINDINGS: Image quality: Diagnostic. Lower chest: Unremarkable. Liver: Hepatic steatosis. No focal solid lesions identified in the. Gallbladder: Surgically absent. Biliary tree: No intrahepatic or extrahepatic dilation, accounting for age. Spleen: No splenomegaly. Small splenic hypodensities are incompletely characterized but likely repres ent small splenic cysts Pancreas: No pancreatic ductal dilation. No peripancreatic inflammation. Adrenals: No adrenal nodule. Kidneys and ureters: No hydronephrosis. No renal cystic lesion which requires follow up. No solid mas s. Stomach, bowel and peritoneum: No gastric or small bowel dilation. Mild circumferential wall thickeni ng of the distal sigmoid colon and rectum. This may be related to incomplete distention. No significa nt pericolonic stranding. No abnormal wall thickening. No pathologic free fluid. Normal appendix. Lymph nodes: No central or retroperitoneal adenopathy. Vessels: No infrarenal aortic aneurysm. Patent portal vein. PELVIS Reproductive organs: Unremarkable. Bladder: No abnormal wall thickening, accounting for underdistention. Pelvic lymph nodes: No pelvic adenopathy by size criteria. Bones: No aggressive osseous abnormality. Other: No significant ventral or inguinal hernia. Small fat-containing umbilical hernia without acute inflammation. IMPRESSION: CT abdomen and pelvis without acute abnormalities. Minimal circumferential wall thickening of the dis marco sigmoid colon and rectum likely related to incomplete distention. However, minimal/mild colitis e ither infectious or inflammatory etiology may have a similar appearance. Hepatic steatosis. Small fat-containing umbilical hernia without acute inflammation. Normal appendix. Other chronic findings as above. Reviewed by: Scar Jean Baptiste MD on 07/05/2024 12:19 PM PDT Approved by: Scar Jean Baptiste MD on 07/05/2024 12:19 PM PDT Station ID: [id number]
[2024-07-05] MEDS: iohexoL-300 100 ML VIAL IVP ONE (16:38)
[2024-07-05] MEDS: BARIUM SULFATE 450 ML ORAL.SUSP PO ONE (16:40)
== END 2024-07-05 07:24 | disposition home or self-care (01) ==
LOC: LAB 07:23
PROVIDERS: ATTEND Nurse Practitioner Family
DX: K92.1 Melena (principal); R10.84 Generalized abdominal pain; R31.9 Hematuria, unspecified; Z87.19 Personal history of other diseases of the digestive system; K76.0 Fatty (change of) liver, not elsewhere classified; K42.9 Umbilical hernia without obstruction or gangrene
CPT/HCPCS: 36415; 74177; 82565; A9270